=== PATIENT | female | born 1970 | race African-American/Black ===

== ENCOUNTER → 2016-03-24 | Day surgery (SDC) | payer BC ==
[~2016-03-24] MED LIST: Buffered Lidocaine 1% SYR 3ML* 3 ML/SYR SYRINGE INTRADERM ONE; Bupivacaine 0.25% EPI 200,000* 30 ML SDV ONE; Dexamethasone IV* 4 MG/ML 1 ML (4 MG) IV SLOW PU ONE; Dexamethasone IV* 4 MG/ML 1 ML (4 MG) ONE; DiMENhydriNATE IV* 50 MG/ML VIAL IV PUSH PRN; Famotidine IV* 10 MG/ML 2 ML (20 mg) IV ONE; Famotidine IV* 10 MG/ML 2 ML (20 mg) ONE; HYDROmorphone INJ* 1 MG/ML CARPUJECT SYRINGE IV PRN; HYDROmorphone INJ* 1 MG/ML CARPUJECT SYRINGE ONE; Lidocaine 1% INJ* 10 MG/ML 30 ML SDV ONE; Midazolam* 1 MG/ML 5 ML VIAL (5 MG) ONE; Ondansetron INJ* 2 MG/ML VIAL IV PRN; PROCHLORPERAZINE INJ 5 MG/ML 2 ML VIAL IV PRN; ceFAZolin 2 GM PREMIX (*) 2 GM/50 ML BAG IVPB ONE; fentaNYL* 50 MCG/ML 2 ML VIAL (100 MCG VIAL) IV PRN; fentaNYL* 50 MCG/ML 2 ML VIAL (100 MCG VIAL) ONE; oxyCODONE/Acetamin 5/325 MG* TAB ONE; oxyCODONE/Acetamin 5/325 MG* TAB PO PRN
--- NOTE | 2016-03-24 14:51 | SURGPN ---
Brief Operative Note - Surgery Procedures: Pre-OP Diagnoses: incarcerated ventral hernia Post-op Diagnosis: same Procedure: open ventral hernia repair with mesh Surgeon: Shameka Asst: Davide Anethesia: GA with LMA Adam EBL: minimal IVF: 1200cc LR Specimen: hernia sac and contents Drains: none
[2016-03-24 16:36] VITALS: BP 137/82
--- NOTE | 2016-03-25 15:26 | OP ---
OPERATIVE REPORT: DATE OF OPERATION: 03/24/16 - SDS DATE OF : 66 SURGEON: He yMles MD. ELEVATOR REPAIRER HELPER: BRANDON Gresham. ANESTHESIOLOGIST: Dr. Medina. ANESTHESIA: General anesthesia with LMA. PRE-OP DIAGNOSIS: Incarcerated ventral hernia. POST-OP DIAGNOSIS: Incarcerated ventral hernia. OPERATIVE PROCEDURE: Open ventral hernia repair with mesh. ESTIMATED BLOOD LOSS: Minimal. FLUIDS: 1200 mL of crystalloid fluid given. SPECIMENS: Herniated sac and contents. DRAINS: None. COUNTS: Lap pad count and instrument count correct at the end of the procedure. DESCRIPTION OF PROCEDURE: The patient was identified in the preoperative area. Previously identified hernia was again identified and marked and the patient was brought to the operating room and placed on the operating table in the supine position. Preoperative antibiotics were given. Sequential devices were placed on bilateral lower extremities. General anesthesia was induced and the patient's abdomen was prepped and draped in the standard surgical fashion. A time-out was performed. An upper midline incision was made just above the umbilicus, just medial to the discrete hernia that was identified. This was deepened down to the anterior fascia on the right and cleared off. We freed up what appeared to be ischemic fat within the hernia sac. This was cleared off at the neck of the hernia and then the sac opened up. We debrided some of the necrotic fat that appeared to be omentum at first and it was only later figured out that this is all incarcerated preperitoneal fat that presented with the sac itself. This was all debrided and passed off as specimen after excising with electrocautery. Now that this was all free, we could appreciate the borders of the hernia defect , which was approximately 2.2 cm just left of the midline. I inserted my finger into the defect and there were no adhesions to the anterior abdominal wall. There was what appeared to be a subcentimeter umbilical defect with no contents and this was a smooth area of approximately 2.5 cm from the dissected hernia. At this point, a 6.4 cm Ventralex mesh was opened up, feeling that the lower edge of this would encompass the umbilical hernia which did not appear to be of anything of concern. This would make a good coverage of the primary defect. It was inserted into the abdominal cavity and allowed to spring open. The corners of the hernia defect were reapproximated with 0 Polysorb sutures and then the tails of the mesh were sutured to the anterior fascia superiorly and inferiorly. The tails of the Ventralex mesh were cut. The fascia overlying this was loosely reapproximated to get full coverage of the mesh. We irrigated and hemostasis was excellent and then the defect was reapproximated at the skin level with 3-0 Polysorb sutures followed by 4-0 Monocryl subcuticular sutures. Steri-Strips and sterile dressing were applied. The patient tolerated the procedure well, was awoken up in the ER, and transferred to the PACU in stable condition. CC: Dr. Zayda Mckeon; [facility]* [id number]/CPS #: [id number] MTDD
== END | disposition home or self-care (01) ==
LOC: OR 10:56
PROVIDERS: ATTEND Surgery
DX: K43.6 Other and unspecified ventral hernia with obstruction, without gangrene (principal)
CPT/HCPCS: 88302; A9270-GY; C1781; J0690; J1100; J1170; J2250; J3010